=== PATIENT | male | born 1995 ===

== ENCOUNTER 2019-12-15 19:07 | Emergency (ER) | payer SELFPAY ==
[2019-12-15 19:21] VITALS: BP 143/100; PULSE 89; RESP 18; TEMP 37.2; O2SAT 97; BMI 28.1
[2019-12-15 19:28] LABS: Basophils # 0.1 10^3/uL (0.0-0.1); Basophils % 0.9 %; Eosinophils # 0.1 10^3/uL (0.0-0.8); Eosinophils % 1.1 %; Hemoglobin 15.8 g/dL (11.7-16.6); Lymphocytes % 27.3 %; Mean Corpuscular HGB Conc 34.3 g/dL (30.0-36.0); Mean Corpuscular Hemoglobin 30.7 pg (28.0-34.0); Mean Corpuscular Volume 89.5 fL (80-94); Monocytes # 0.8 10^3/uL (0.2-0.9); Monocytes % 11.1 %; Neutrophils # 4.43 10^3/uL (1.8-7.7); Neutrophils % 59.3 %; Nucleated Red Blood Cells % 0 %; Platelet Count 380 10^3/cmm (130-400); Red Blood Count 5.14 10^6/uL (4.1-5.3); Red Cell Distribution Width 11.9 % (12.1-15.1); White Blood Count 7.5 10^3/uL (4.0-10.0)
[2019-12-15 19:46] LABS: Alanine Aminotransferase 209 U/L (0-41); Albumin Level 5.1 g/dL (3.5-5.2); Alcohol Level 117 mg/dL (0-10); Alkaline Phosphatase 109 IU/L (40-130); Anion Gap 17.6 (5-19); Aspartate Amino Transferase 135 U/L (0-40); Blood Urea Nitrogen 4 mg/dL (6-20); Calcium 9.6 mg/dL (8.5-10.5); Carbon Dioxide 23 mmol/L (22-29); Chloride 101 mmol/L (98-107); Globulin 3.2 g/dL (1.3-4.6); Glomerular Filtration Rate 137.4 mL/min (90-130); Glucose 108 mg/dL (65-115); Osmolality Calculated 282 mOsm/kg (285-295); Potassium 3.6 mmol/L (3.5-5.1); Sodium 138 mmol/L (136-145); Total Bilirubin 0.4 mg/dL (0.15-1.2); Total Protein 8.3 g/dL (6.6-8.7)
[2019-12-15 19:48] LABS: Acetaminophen < 5.0 ug/mL (10-30); Salicylate < 0.3 mg/dL (3-10)
--- NOTE | 2019-12-15 19:56 | W.ED.PSYCH ---
HPI - Psych General: Chief Complaint: Psychiatric Symptoms Stated Complaint: mhe Time Seen by Provider: 12/15/19 19:15 Source: patient Mode of arrival: ambulatory Limitations: no limitations History of Present Illness: HPI Narrative: Pj is a nice 24-year-old male who comes in with complaints of wanting to stop drinking. He states that he also uses drugs at times and this makes him very paranoid but he has not used anything recently. He says he does not drink every day but he does use other drugs. Patient states he is very depressed and wants help. He adamantly denies any suicidal or homicidal ideation. Denies any current hallucinations. He just continues to say that he wants to get help. Patient is unaware if he has severe withdrawal symptoms as he is never tried to stop drinking after he has been drinking heavily but he can quit at times if he needs to. This time the patient appears alert and oriented there is no smell of alcohol presently. He does not appear impaired or intoxicated. He does admit to drinking today and shortly before arrival here. Review of Systems Const: Denies: fever(s), chills, body aches, fatigue, malaise or diaphoresis Eyes: Denies: change in vision, blurry vision, photophobia, eye discomfort, eye discharge or eye redness ENMT: Denies: throat pain, odynophagia, hoarseness, swelling of lips/tongue, ear or mastoid pain, ear discharge, change in hearing or nasal discharge Card: Denies: chest pain, palpitations, irregular heart rhythm, edema, lightheadedness, syncope, pre-syncope, dyspnea on exertion or orthopnea Resp: Denies: dyspnea, productive cough, non-productive cough, wheezing, hemoptysis or chest congestion GI: Denies: abdominal pain, nausea, vomiting, hematemesis, coffee ground emesis, heartburn, diarrhea, constipation, GI cramping, hematochezia or melena : Denies: flank pain, dysuria, urinary frequency, urinary urgency or hematuria Musc: Denies: neck pain, back pain, extremity pain, extremity swelling, joint pain, joint swelling, joint redness, joint warmth or joint stiffness Skin/Breast: Denies: rash, pruritus, erythema or skin tenderness Neuro: Denies: headache(s), numbness in extremities, weakness in extremities, sensory changes, lack of coordination, difficulty walking, dizziness, vertigo, confusion, Slurred speech present or seizure-like activity Sonny/Lymph: Denies: easy bruising, easy bleeding, petechiae, purpura or enlarged lymph nodes All/Imm: Denies: urticaria, throat swelling, tongue swelling, facial swelling or acute wheezing [facility] ED PFSH: Medical History (Updated 12/15/19 @ 20:39 by Tiny Walker) No pertinent past medical history Physical Exam Const: COMMON NORMALS: no acute distress, patient oriented x3, no limitations, healthy appearing and well nourished GENERAL APPEARANCE: cooperative, well kempt and well developed HENMT: COMMON NORMALS: normocephalic, atraumatic, external ears normal, EAC's normal and Normal external nose present HEAD & SCALP: normal to inspection, normocephalic and atraumatic FACE & SINUS: normal facial exam and face symmetric NOSE: Normal external nose present and Normal nares present EXTERNAL EAR: Yes external ears normal EXTERNAL AUDITORY CANAL: EAC's normal MOUTH: Normal oral and palatal mucosa present, lip normal and tongue normal Eye: COMMON NORMALS: Equal, round and reactive pupils present and conjunctivae normal GENERAL EYE: appearance normal, both eyes and all related structures ALIGNMENT: Yes alignment normal PERIORBITAL: periorbital findings normal EYELID: eyelids normal CONJUNCTIVA: Yes conjunctivae normal SCLERA: sclerae normal PUPIL: Yes Equal, round and reactive pupils present Neck/C-Spine: COMMON NORMALS: full ROM, no lymphadenopathy, supple, no meningeal signs and no JVD GENERAL: Yes normal visual inspection and Yes trachea midline Chest: COMMONS NORMALS: normal inspection of the chest and normal palpation of entire chest wall Resp: COMMON NORMALS: normal respiratory effort, No retractions, No use of accessory muscles and clear to auscultation bilaterally EFFORT & INSPECTION: Yes able to speak in complete sentences and Yes symmetric chest movement AUSCULTATION: clear to auscultation bilaterally, no crackles, no rales, no rhonchi and no wheezes Cardio: COMMON NORMALS: no JVD, regular rate, regular rhythm, S1 normal heart sound present and S2 normal heart sound present RATE: regular rate RHYTHM: regular rhythm HEART SOUNDS: S1 normal heart sound present, S2 normal heart sound present, no click, no gallops, no murmurs, no rubs and abnormal split S2 GI: COMMON NORMALS: Soft to palpation and No hepatosplenomegaly present PALPATION: Yes Soft to palpation, No Tenderness to palpation present (GI), No Guarding due to palpation present (GI), No Rigid due to palpation, Yes No hepatosplenomegaly present, No Hernia present, No Palpable mass present and No Pulsatile mass present : COMMON NORMALS: Yes no CVA tenderness BLADDER/KIDNEY EXAM: Yes no CVA tenderness Back/Pelvis: COMMON NORMALS: no CVA tenderness, thoracic and lumbar spine normal to inspection, no thoracic nor lumbar tenderness and thoraco-lumbar ROM normal Extremity: COMMON NORMALS: normal to inspection, full ROM, capillary refill normal, no joint enlargement, no clubbing, cyanosis or edema and no calf tenderness Neuro: COMMON NORMALS: patient oriented x3, CN's II-XII intact bilaterally, moves all extremities, no focal motor deficits and no sensory deficits noted MENINGEAL SIGNS: Yes no meningeal signs SPEECH: speech normal Psych: COMMON NORMALS: mental status grossly normal, Normal thought process present, cooperative, normal affect, speech normal and activity/motor behavior normal APPEARANCE: Yes well kempt SPEECH: Yes normal speech THOUGHT PROCESS: Normal thought process present Skin: COMMON NORMALS: no rashes or lesions noted, turgor normal, no jaundice, no petechiae and no mottling GENERAL SKIN EXAM: no rashes or lesions noted and turgor normal MDM - Psych MDM Narrative: Medical decision making narrative: 2036 -patient is change his mind and now wants to be discharged. He agrees to let his dad come pick him up because of his mild intoxication by laboratory value. Clinically the patient is alert, oriented and answers all questions appropriately and shows no sign of impairment. Patient clearly has the capacity to make these decisions. She has no sign of acute psychosis or impairment. He is not suicidal or homicidal. Going to discharge him per his wishes and he understands he is welcome to return if he changes his mind. Patient was able to walk with a nice any of ataxia he did understand he is welcome to return if he changes his mind. Lab Data: Attestation: I reviewed the patient's lab results. Labs: Lab Results 12/15/19 12/15/19 Range/Units 19:22 19:22 WBC 7.5 (4.0-10.0) 10^3/ uL RBC 5.14 (4.1-5.3) 10^6/u L Hgb 15.8 (11.7-16.6) g/dL Hct 46.0 (42.0-52.0) % MCV 89.5 (80-94) fL MCH 30.7 (28.0-34.0) pg MCHC 34.3 (30.0-36.0) g/dL RDW 11.9 L (12.1-15.1) % Plt Count 380 (130-400) 10^3/c mm MPV 10.0 (7.4-10.4) fL Neut % (Auto) 59.3 % Lymph % (Auto) 27.3 % Bradford % (Auto) 11.1 % Eos % (Auto) 1.1 % Baso % (Auto) 0.9 % Neut # (Auto) 4.43 (1.8-7.7) 10^3/u L Lymph # (Auto) 2.0 (0.8-4.8) 10^3/u L Bradford # (Auto) 0.8 (0.2-0.9) 10^3/u L Eos # (Auto) 0.1 (0.0-0.8) 10^3/u L Baso # (Auto) 0.1 (0.0-0.1) 10^3/u L Nucleated RBC % (a uto) 0 % Nucleated RBCs # 0.0 /100WBC Sodium 138 (136-145) mmol/L Potassium 3.6 (3.5-5.1) mmol/L Chloride 101 (98-107) mmol/L Carbon Dioxide 23 (22-29) mmol/L Anion Gap 17.6 (5-19) BUN 4 L (6-20) mg/dL Creatinine 0.7 (0.7-1.2) mg/dL GFR Calculation 137.4 H (90-130) mL/min Glucose 108 (65-115) mg/dL Calculated Osmolal ity 282 L (285-295) mOsm/k g Calcium 9.6 (8.5-10.5) mg/dL Total Bilirubin 0.4 (0.15-1.2) mg/dL AST 135 H (0-40) U/L ALT 209 H (0-41) U/L Alkaline Phosphata se 109 (40-130) IU/L Total Protein 8.3 (6.6-8.7) g/dL Albumin 5.1 (3.5-5.2) g/dL Globulin 3.2 (1.3-4.6) g/dL Salicylates < 0.3 L (3-10) mg/dL Acetaminophen < 5.0 L (10-30) ug/mL Ethyl Alcohol 117 H (0-10) mg/dL Discharge Plan Discharge Patient Disposition: Home Clinical Impression: Alcohol intoxication Qualifiers: Complication of substance-induced condition: uncomplicated Qualified Code(s): F10.920 - Alcohol use, unspecified with intoxication, uncomplicated Condition: Stable Prescriptions: No Action Tums 300 mg (750 mg) Tablet,Chewable 300 mg PO QID PRN (Reason: ACID STOMACH) RF: 0 No Known Home Medications RF: 0 Discharge Orders: Discharge Order (Routine); Ordered 12/15/19 Ordered By: Tiny Wakler Referrals: Oh Manzo MD [Primary Care Provider] - 1-3 days Discharge Diet: Advance as tolerated Discharge Activity: Increase activity as tolerated Patient Instructions: Alcohol Intoxication (ED), Abuse of Alcohol (ED) Activity Restrictions/Additional Instructions: Please return to the ER immediately for any of the signs or symptoms listed on your discharge instruction sheets, worsening/changing of your symptoms, you are not getting better as quickly as expected, or for ANY other cause or concerns. You have been offered further evaluation and care here including admission to help with detox from alcohol but have declined. If your symptoms change or worsen in any way you are more than welcome to return to the ER at any time for further evaluation and care. Discharge Date/Time: 12/15/19 20:45 Coding Level of Care Code ED Roving Hand for Lesvia Fwd Exam Comprehensive
--- NOTE | 2019-12-15 20:38 | PC.NURSE ---
Pt is upset. I'm not getting treatment just setting here . Ativan and nicotine patch offered. Pt wanting to go outside and smoke, pt advised of [facility] policy. Pt wanting to de discharged.
== END 2019-12-15 20:45 | disposition home or self-care (01) ==
PROVIDERS: Emergency Medicine; Emergency Provider Emergency Medicine; PCP Family Medicine
DX: F10.920 Alcohol use, unspecified with intoxication, uncomplicated (principal); Y90.5 Blood alcohol level of 100-119 mg/100 ml
CPT/HCPCS: 12345; 36415; 80053; 80307; 85025; 99281; 99282

== ENCOUNTER 2020-05-11 17:53 | Inpatient (IN) | payer SELFPAY ==
[2020-05-11 17:56] VITALS: BP 160/100; PULSE 98; RESP 18; O2SAT 99; BMI 28.1
[2020-05-11] MEDS: LORazepam 2 mg/mL INJ 1 mL IM (18:26)
[2020-05-11] MEDS: ziprasidone 20 mg/mL SDV IM (18:27)
[2020-05-11 19:11] LABS: Basophils % 0.6 %; Eosinophils # 0.1 10^3/uL (0.0-0.8); Eosinophils % 0.8 %; Hemoglobin 16.5 g/dL (11.7-16.6); Lymphocytes # 3.3 10^3/uL (0.8-4.8); Lymphocytes % 45.3 %; Mean Corpuscular Hemoglobin 28.8 pg (28.0-34.0); Mean Corpuscular Volume 87.4 fL (80-94); Mean Platelet Volume 9.6 fL (7.4-10.4); Monocytes # 0.6 10^3/uL (0.2-0.9); Monocytes % 8.1 %; Neutrophils % 44.6 %; Nucleated Red Blood Cells % 0 %; Platelet Count 422 10^3/cmm (130-400); Red Blood Count 5.72 10^6/uL (4.1-5.3); Red Cell Distribution Width 13.1 % (12.1-15.1); White Blood Count 7.2 10^3/uL (4.0-10.0)
--- NOTE | 2020-05-11 19:43 | PC.NURSE ---
Pt resting quietly in bed at this time, respirations appear even and unlabored. 1:1 sitter at bedside.
[2020-05-11 20:06] LABS: Alanine Aminotransferase 25 U/L (0-41); Albumin Level 4.4 g/dL (3.5-5.2); Alkaline Phosphatase 146 IU/L (40-130); Anion Gap 13.7 (5-19); Aspartate Amino Transferase 28 U/L (0-40); Blood Urea Nitrogen 9 mg/dL (6-20); Calcium 8.7 mg/dL (8.5-10.5); Carbon Dioxide 30 mmol/L (22-29); Chloride 108 mmol/L (98-107); Globulin 3.2 g/dL (1.3-4.6); Glomerular Filtration Rate 137.4 mL/min (90-130); Glucose 114 mg/dL (65-115); Osmolality Calculated 306 mOsm/kg (285-295); Potassium 3.7 mmol/L (3.5-5.1); Sodium 148 mmol/L (136-145); Total Bilirubin 0.2 mg/dL (0.15-1.2); Total Protein 7.6 g/dL (6.6-8.7)
[2020-05-11 20:15] LABS: Acetaminophen < 5.0 ug/mL (10-30); Salicylate < 0.3 mg/dL (3-10)
[2020-05-11 20:16] LABS: Alcohol Level 367 mg/dL (0-10)
[2020-05-11 22:34] LABS: Alcohol Level 271 mg/dL (0-10)
--- NOTE | 2020-05-11 23:16 | W.ED.PSYCH ---
HPI - Psych General: Chief Complaint: Psychiatric Symptoms Stated Complaint: Combative/ETOH Time Seen by Provider: 05/11/20 18:00 Source: patient and police Mode of arrival: other (law enforcement) History of Present Illness: HPI Narrative: This is a 24-year-old gentleman who was brought in by law enforcement. Apparently his mother had called law enforcement because she said her son was having homicidal ideations over a lady. The patient is also obviously intoxicated. The patient was apparently aggressive with the police officers and was punching at the glass of their car and may have swung at the officers. He was then placed in handcuffs and brought here for evaluation. complaint: other (homicidal ideation) Exacerbating factors: alcohol Context: recent alcohol abuse Associated psychiatric symptoms: homicidal ideation Associated symptoms: Reports homicidal ideation Review of Systems General: Reports: 10 or more systems reviewed and unremarkable except in HPI and below Const: Denies: fever(s), chills or body aches Eyes: Denies: change in vision or blurry vision ENMT: Denies: throat pain, enlarged tonsils, odynophagia, hoarseness, mouth pain or swelling of lips/tongue Card: Denies: palpitations, irregular heart rhythm, edema or swelling of feet/ankles Resp: Denies: dyspnea, productive cough or non-productive cough GI: Denies: abdominal pain, nausea or vomiting : Denies: flank pain, dysuria, urinary frequency, urinary urgency or urinary hesitancy Musc: Denies: neck pain, back pain or extremity swelling Skin/Breast: Denies: rash, pruritus or erythema Neuro: Denies: headache(s), numbness in extremities or weakness in extremities Psych: Reports: homicidal ideation Endo: Denies: polyuria, polydipsia or tired all the time PFS ED PFSH: Medical History No pertinent past medical history Physical Exam Const: COMMON NORMALS: no acute distress, average body habitus, patient oriented x3, no limitations, healthy appearing, alert and well nourished Eye: COMMON NORMALS: Equal, round and reactive pupils present, EOMs intact bilaterally, conjunctivae normal and no scleral icterus CONJUNCTIVA: Yes conjunctivae normal PUPIL: Yes Equal, round and reactive pupils present Neck/C-Spine: COMMON NORMALS: no meningeal signs and no JVD Resp: COMMON NORMALS: normal respiratory effort, No retractions, No use of accessory muscles, clear to auscultation bilaterally and percussion normal AUSCULTATION: clear to auscultation bilaterally PERCUSSION: percussion normal Cardio: COMMON NORMALS: no JVD, regular rate, regular rhythm, S1 normal heart sound present, S2 normal heart sound present, No gallops present (Cardio), No clicks present (Cardio), No murmurs present (Cardio), No rub (Cardio) and Peripheral pulses 2+ throughout RATE: regular rate RHYTHM: regular rhythm HEART SOUNDS: S1 normal heart sound present and S2 normal heart sound present PERIPHERAL PULSES: Peripheral pulses 2+ throughout GI: COMMON NORMALS: Normal to inspection, nondistended, normoactive bowel sounds present, Soft to palpation, non-tender, No hepatosplenomegaly present, no masses and no bruits PALPATION: Yes Soft to palpation and Yes No hepatosplenomegaly present Extremity: COMMON NORMALS: normal to inspection, full ROM, capillary refill normal, no calf tenderness and no pedal edema Neuro: COMMON NORMALS: patient oriented x3 SENSORIUM/ORIENTATION: Yes alert MENINGEAL SIGNS: Yes no meningeal signs Skin: COMMON NORMALS: no rashes or lesions noted, no wounds, turgor normal, no jaundice, no petechiae and no mottling GENERAL SKIN EXAM: no rashes or lesions noted and turgor normal MDM - Psych MDM Narrative: Medical decision making narrative: This 24-year-old gentleman with alcohol intoxication had apparently threatened somebody earlier today and his mother was concerned enough to call law enforcement. The patient was violent and aggressive towards police officers and also was arrested and placed in handcuffs and brought here for evaluation. The police filled out the affidavits stating what happened when he was in their custody. The patient was initially cooperative in the emergency department but when he was asked to have his clothes taken off he became aggressive, threatening to attack and punched security officers and became more cooperative. At that point he was physically and chemically restrained. After he was chemically restrained physical restraints were taken off. He was medically cleared and admitted to the neuropsychiatric unit for further evaluation and management. Medical Records: Attestation: I reviewed the patient's medical records. Lab Data: Attestation: I reviewed the patient's lab results. Labs: Lab Results 05/11/20 05/11/20 05/11/20 Range/Units 18:58 18:58 22:10 WBC 7.2 (4.0-10.0) 10^3/ uL RBC 5.72 H (4.1-5.3) 10^6/u L Hgb 16.5 (11.7-16.6) g/dL Hct 50.0 (42.0-52.0) % MCV 87.4 (80-94) fL MCH 28.8 (28.0-34.0) pg MCHC 33.0 (30.0-36.0) g/dL RDW 13.1 (12.1-15.1) % Plt Count 422 H (130-400) 10^3/c mm MPV 9.6 (7.4-10.4) fL Neut % (Auto) 44.6 % Lymph % (Auto) 45.3 % Bradley % (Auto) 8.1 % Eos % (Auto) 0.8 % Baso % (Auto) 0.6 % Neut # (Auto) 3.20 (1.8-7.7) 10^3/u L Lymph # (Auto) 3.3 (0.8-4.8) 10^3/u L Bradley # (Auto) 0.6 (0.2-0.9) 10^3/u L Eos # (Auto) 0.1 (0.0-0.8) 10^3/u L Baso # (Auto) 0.0 (0.0-0.1) 10^3/u L Nucleated RBC % (a uto) 0 % Nucleated RBCs # 0.0 /100WBC Sodium 148 H (136-145) mmol/L Potassium 3.7 (3.5-5.1) mmol/L Chloride 108 H (98-107) mmol/L Carbon Dioxide 30 H (22-29) mmol/L Anion Gap 13.7 (5-19) BUN 9 (6-20) mg/dL Creatinine 0.7 (0.7-1.2) mg/dL GFR Calculation 137.4 H (90-130) mL/min Glucose 114 (65-115) mg/dL Calculated Osmolal ity 306 H (285-295) mOsm/k g Calcium 8.7 (8.5-10.5) mg/dL Total Bilirubin 0.2 (0.15-1.2) mg/dL AST 28 (0-40) U/L ALT 25 (0-41) U/L Alkaline Phosphata se 146 H (40-130) IU/L Total Protein 7.6 (6.6-8.7) g/dL Albumin 4.4 (3.5-5.2) g/dL Globulin 3.2 (1.3-4.6) g/dL Salicylates < 0.3 L (3-10) mg/dL Acetaminophen < 5.0 L (10-30) ug/mL Ethyl Alcohol 367 H* 271 H (0-10) mg/dL Discharge Plan Discharge Patient Disposition: Admitted As Inpatient Admit Provider: William Heller Clinical Impression: Homicidal ideation, Alcohol intoxication delirium Condition: Stable Coding Level of Care Code ED Mental Health Program Specialist for Lesvia Herrera
[2020-05-11 23:26] VITALS: BP 105/65; PULSE 108; RESP 16; O2SAT 94
[2020-05-12 00:12] VITALS: BP 112/58; PULSE 120; RESP 15; TEMP 36.6; O2SAT 97
[2020-05-12 00:18] LABS: Amphetamines Screen Urine Negative (Negative); Barbiturates Screen Urine Negative (Negative); Benzodiazepines Screen Urine Positive (Negative); Cocaine Screen Urine Negative (Negative); Opiate Screen Urine Negative (Negative); PCP Screen Urine Negative (Negative); THC Screen Urine Negative (Negative)
[2020-05-12 00:30] LABS: Add Urine Microscopic? YES; Bilirubin Urine Neg (Negative); Blood Urine Neg (Negative); Glucose Urine UA Norm (Normal); Ketones Urine Negative (Negative); Leukocyte Esterase Urine Negative (Negative); Nitrate Urine Negative (Negative); Protein Urine Trace (Negative); Urine Appearance Clear (CLEAR); Urine Color Yellow (Yellow); Urobilinogen Urine Norm (Negative); pH Urine 5 (5-7)
[2020-05-12 00:32] LABS: Add Urine Culture? No; Calcium Oxalate Crystals Urine 0-4 /hpf; Mucus Urine TRACE /hpf; RBC Urine RARE /hpf (0-2); Squamous Epithelial Cell Urine RARE /hpf (0-5); WBC Urine RARE /hpf (0-5)
--- NOTE | 2020-05-12 03:35 | PC.NURSE ---
PM admission 24/Male mother called the police to report her sons behavior, Pt intoxicated and making HI statements regarding female. Pt became angry/aggressive with the police and was punching at the glass of their car and threw a punch at one of the officers.He was then placed in handcuffs and brought here for evaluation. Upon arrival, pt was combative-physically/verbally aggressive with ED staff, Balwinder Sims. Pt was given 20mg Geodon IM and Ativan 2mg IM. Placed in green scrubs and brought to the unit. Pt is sleepy from medication and brought to the NPU on a stretcher. Pt states, I have been drinking since I turn 20 almost daily. Each night I drink a 1/5 of Fireball. Pt states, Im an alcoholic. I can buy the stuff legally now so why wouldn't I. Pt states, I was walking with my uncle when the tripe scraper just rolled up on me.I don't know why they were even there. Pt states, I tend to get violent when I drink and I think I need rehab but I do not want to go inpatient. Pt is calm and cooperative with NPU staff. Placed on CIWA protocol. V/S obtained T 97.8 IA 120, RR 19, BP 112/58. Heart/Lung sounds are normal. Will continue to monitor pt
--- NOTE | 2020-05-12 04:11 | PC.NURSE ---
[place] 2 Pt sedated upon arrival to NPU. Received meds in ED prior to admit. Pt indicated he is a daily drinker and will have s/s of withdrawl.
[2020-05-12 06:00] VITALS: BP 141/88; PULSE 76; RESP 18; TEMP 36.2; O2SAT 94
[2020-05-12] MEDS: multivitamin therapeutic Tablet 1 TAB PO (08:41)
[2020-05-12] MEDS: thiamine 100 mg Tablet PO (08:41)
[2020-05-12] MEDS: folic acid 1 mg Tablet PO (08:41)
[2020-05-12 14:00] VITALS: BP 148/96; PULSE 86; RESP 18; TEMP 36.2; O2SAT 95
--- NOTE | 2020-05-12 18:49 | PM.NHP ---
Providers/Chief Complaint Admitting Physician: William Heller MD Primary Care Provider: Oh Manzo MD Chief Complaint: HI/ SI HPI NPU History of Present Illness Pj Dudley JR is a 24 year old male who presented to the emergency department with the following report: Chief Complaint: Psychiatric Symptoms Stated Complaint: Combative/ETOH Time Seen by Provider: 05/11/20 18:00 Source: patient and police Mode of arrival: other (law enforcement) History of Present Illness: HPI Narrative: This is a 24-year-old gentleman who was brought in by law enforcement. Apparently his mother had called law enforcement because she said her son was having homicidal ideations over a lady. The patient is also obviously intoxicated. The patient was apparently aggressive with the police officers and was punching at the glass of their car and may have swung at the officers. He was then placed in handcuffs and brought here for evaluation. MD complaint: other (homicidal ideation) Exacerbating factors: alcohol Context: recent alcohol abuse Associated psychiatric symptoms: homicidal ideation Associated symptoms: Reports homicidal ideation. He was admitted to the neuropsychiatric unit on a 96-hour hold for definitive treatment of those issues. Luis Enrique presented to the unit reporting that this is for psychiatric consultation. He reports he did have some treatment as a child but he was just rebellious and [id number] to the degree. He reports that he does not smoke cigarettes that he drinks alcohol and acknowledges that can be a problem and had not drank for 3 months but has been drinking again, he denies smoking marijuana or using any other illicit drugs. He reports that he has been to rehab 2 times as an adolescent and 1 time for 3 months as an adult. He had 1 DUI. He reports that life is good but that recently he started drinking a lot and he knows that it is a problem but he just got out of control yesterday. He has no collection reports no memory of what happened. He denies any problems or triggers to that level of intoxication. He denies any suicide attempts in his life. Psychiatric history: As above Substance abuse history: As above. Family history: He endorses mental health issues on both sides of family as well as addiction issues on both sides of family but he denies any suicide attempts or completions. Developmental history: There were no problems with the , or delivery, learned to walk and talk and met developmental milestones on time, and denies need for speech therapy, learning support, emotional support or special education classes. Psychosocial: He reports that his mother and father were together when he was born and that he is the oldest and he has a younger brother and sister that share the same to parents. His mother never had any other children but his dad has 3-4. He reports his childhood was okay and he denies any emotional, physical or sexual abuse. He reports he did not graduate from high school but dropped out in the 12th grade but he did get his GED. He reports that he is a heterosexual with his longest relationship being about a year. He is never , has never had biological children, and recently . He reports his longest work history is about a year. He reports that he stays with a friend in a house. Legal history: He reports that he has been in [facility] probably 10 times but the longest time in [facility] is about 2 weeks. Medical history: Denied. Meds NPU Home Medications Medication Instructions Recorded Confirmed Last Taken Type calcium carbonate [Tums] 300 mg PO QID PRN 12/15/19 05/11/20 12/15/19 History Allergies Allergy/AdvReac Type Severity Reaction Status Date / Time No Known Allergies Allergy Unverified 12/15/19 19:51 PFSH NPU PFSH: Medical History (Reviewed 05/11/20 @ 23:19 by Harry De La Torre MD, [facility] [place]) No pertinent past medical history Mental Status Exam MSE Comments: This is a overweight male with hospital scrubs on. With appropriate dress, grooming and eye contact. No abnormal for mild psychomotor retardation. Cooperative with exam in no acute distress. Speech was normal rate and volume. Mood described as much better/good process organized. Thought content: Patient denied suicidal or homicidal ideation, there were no days reported or noted, he denied any auditory or visual hallucinations. Attention and concentration were intact and memory was mostly reliable but none were formally tested. He is alert and oriented x3. Insight and judgment are fair, impulse control is limited. Vitals/I&O/Wt Last Vital Signs Temp 97.7 F 05/12/20 22:00 Pulse 72 05/12/20 22:00 Resp 17 05/12/20 22:00 BP 158/89 05/12/20 22:00 Pulse Ox 96 05/12/20 22:00 Weight last 48 hrs Weight 81.647 kg Data NPU : 05/11/20 18:58 05/11/20 18:58 A&P Assessment and plan (1) Homicidal ideation: Status: Acute (2) Alcohol intoxication delirium: Status: Acute (3) Alcohol withdrawal syndrome without complication: Status: Acute Additional A&P Information This is a 24-year-old male who presented to the emergency department intoxicated after a conflict with police officers denying any current symptoms or problems with some contradictory information from his mother denying any interest in ongoing treatment or medication. 1. Continue current medication. Discussed medication for help with craving. 2. Continue every 15 minute checks for safety. 3. Encourage individual, group and milieu therapies. 4. Encourage sober living treatment after discharge at the highest level of care to which she is willing to commit. Involuntary Hold Information 96 Hour Hold: 96 Hour Involuntary Admission: Yes 96 Hour Hold Ending Date: 05/17/20 96 Hour Hold Ending Time: 18:15 Attestations NPU Medical Necessity Statement*: Inpatient hospitalization is medically necessary and the clinically appropriate intervention at this time. We will monitor medications and make changes as indicated. Patient will be in the hospital for over two midnights. Likely length of stay 2-4 days. Coding Level of Care Code Acute Cement Breaker for Lesvia Herrera Diagnoses Homicidal ideation R45.850 Alcohol intoxication delirium F10.121 Alcohol withdrawal syndrome without complication F10.230
[2020-05-12] MEDS: hyDROXYzine 25 mg Capsule 50 MG PO (21:54)
[2020-05-12] MEDS: trazodone 50 mg Tablet PO (21:54)
[2020-05-12 22:00] VITALS: BP 158/89; PULSE 72; RESP 17; TEMP 36.5; O2SAT 96
--- NOTE | 2020-05-13 05:31 | PC.NURSE ---
PM Assessment Pt is 24/m who came to unit yesterday evening. Pt BAL was 367 and he was positive for Benzo's with a report of HI. Pt denies HI/SI today, contracted for safety. Pt states, I want to do a rehab program but I do not want to go in patient. Pt is unsure of where he will live when he leaves [facility] due to the nature of his behavior that resulted in this placement. Pt states, I have no idea what happened before I came in. I just remember business education instructor, the doctors, and being here when I woke up. Pt states, he has been a chronic drinker since age 20, stopped for 2 months while dating the girl who he was angry about and making homicidal statement's toward her new love interest. Pt feels ashamed of his drinking but still believes he can handle it his way. Pt CIWA is 0 for the shift.Pt has not exhibited any s/s of withdrawl, pt watched tv, asked for medication to help him sleep, and went to bed early.
[2020-05-13 06:00] VITALS: BP 120/68; PULSE 53; RESP 17; TEMP 36.8; O2SAT 96
[2020-05-13] MEDS: thiamine 100 mg Tablet PO (08:31)
[2020-05-13] MEDS: folic acid 1 mg Tablet PO (08:31)
[2020-05-13] MEDS: multivitamin therapeutic Tablet 1 TAB PO (08:31)
[2020-05-13 13:43] VITALS: BP 119/78; PULSE 90; RESP 18; TEMP 36.8
--- NOTE | 2020-05-13 17:34 | P.DS_ITS ---
Diagnoses at Discharge Discharge Diagnosis (1) Homicidal ideation: Status: Resolved (2) Alcohol intoxication delirium: Status: Resolved (3) Alcohol withdrawal syndrome without complication: Status: Acute (4) Alcohol use: Status: Acute (5) Depression: Status: Acute Reason for Visit Reason for Visit: HI/ SI Brief History: History of Present Illness Pj Dudley JR is a 24 year old male who presented to the emergency depa rtment with the following report: Chief Complaint: Psychiatric Symptoms Stated Complaint: Combative/ETOH Time Seen by Provider: 05/11/20 18:00 Source: patient and police Mode of arrival: other (law enforcement) History of Present Illness: HPI Narrative: This is a 24-year-old gentleman who was brought in by law enforcement. Apparently his mother had called law enforcement because she said her son was having homicidal ideations over a lady. The patient is also obviously intoxicated. The patient was apparently aggressive with the police officers and was punching at the glass of their car and may have swung at the officers. He was then placed in handcuffs and brought here for evaluation. MD complaint: other (homicidal ideation) Exacerbating factors: alcohol Context: recent alcohol abuse Associated psychiatric symptoms: homicidal ideation Associated symptoms: Reports homicidal ideation. He was admitted to the neuropsychiatric unit on a 96-hour hold for definitive treatment of those issues. Luis Enrique presented to the unit reporting that this is for psychiatric consultation. He reports he did have some treatment as a child but he was just rebellious and [id number] to the degree. He reports that he does not smoke cigarettes that he drinks alcohol and acknowledges that can be a problem and had not drank for 3 months but has been drinking again, he denies smoking marijuana or using any other illicit drugs. He reports that he has been to rehab 2 times as an adolescent and 1 time for 3 months as an adult. He had 1 DUI. He reports that life is good but that recently he started drinking a lot and he knows that it is a problem but he just got out of control yesterday. He has no collection reports no memory of what happened. He denies any problems or triggers to that level of intoxication. He denies any suicide attempts in his life. Psychiatric history: As above Substance abuse history: As above. Family history: He endorses mental health issues on both sides of family as well as addiction issues on both sides of family but he denies any suicide attempts or completions. Developmental history: There were no problems with the , or delivery, learned to walk and talk and met developmental milestones on time, and denies need for speech therapy, learning support, emotional support or special education classes. Psychosocial: He reports that his mother and father were together when he was born and that he is the oldest and he has a younger brother and sister that share the same to parents. His mother never had any other children but his dad has 3-4. He reports his childhood was okay and he denies any emotional, physical or sexual abuse. He reports he did not graduate from high school but dropped out in the 12th grade but he did get his GED. He reports that he is a heterosexual with his longest relationship being about a year. He is never , has never had biological children, and recently . He reports his longest work history is about a year. He reports that he stays with a friend in a house. Legal history: He reports that he has been in longterm probably 10 times but the longest time in longterm is about 2 weeks. Medical history: Denied. Hospital Course Hospital Course Luis Enrique presented to the emergency department on a 96-hour hold with reports by family of him drinking too much and more than their custom as well as worries that he is struggling with mental health issues. He was admitted to the neuropsychiatric unit for definitive treatment of those issues. On the unit he slowly acclimated to the individual, milieu therapy provided he did acknowledge that his drinking had gotten out of control and endorsed embarrassment to that and however he denied any mental health issues that needed inpatient interventions. He did not deny the existence of depression but reported that he knew he needed to stop drinking and get his life in order and is depression but improved. He was monitored on the 96-hour hold for a couple of days and was ultimately able to contract for safety and was absent credible lethality. D uring the hospitalization, patient had routine laboratory studies which were within normal limits except for few outliers. Additionally there was a general medical evaluation which was also within normal limits and revealed no new acute processes. Discharge Summary: At the time of discharge, he was absent psychosis or lethality. Mood and anxiety were well managed. Patient endorsed a plan to avoid all drugs of abuse and follow-up with the aftercare recommendations of the treatment team excepting the referrals but seeming ambivalent about engagement. Patient was evaluated and deemed to be absent credible lethality, and had achieved the maximum benefit from an inpatient hospitalization, so was discharged. Involuntary Hold Information 96 Hour Hold: 96 Hour Involuntary Admission: Yes 96 Hour Hold Ending Date: 05/17/20 96 Hour Hold Ending Time: 18:15 Mental Status Exam MSE Comments: This is a overweight male with hospital scrubs on. With appropriate dress, grooming and eye contact. No abnormal for mild psychomotor retardation. Cooperative with exam in no acute distress. Speech was normal rate and volume. Mood described as much better/good process organized. Thought content: Patient denied suicidal or homicidal ideation, there were no days reported or noted, he denied any auditory or visual hallucinations. Attention and concentration were intact and memory was mostly reliable but none were formally tested. He is alert and oriented x3. Insight and judgment are fair, impulse control is limited. Discharge Data Vitals: Last Vital Signs Temp 98.3 F 05/13/20 13:43 Pulse 90 05/13/20 13:43 Resp 18 05/13/20 13:43 BP 119/78 05/13/20 13:43 Pulse Ox 96 05/13/20 06:00 Discharge Plan Discharge Patient Disposition: Home Condition: Stable Prescriptions: New Vitamin B-1 (mononitrate) 100 mg Tablet 100 mg PO DAILY 30 Days Qty: 30 RF: 1 Continued calcium carbonate [Tums] 300 mg (750 mg) Tablet,Chewable 300 mg PO QID PRN (Reason: ACID STOMACH) RF: 0 Discharge Orders: Discharge Order (Routine); Ordered 05/13/20 Ordered By: William Heller Referrals: [facility] [Outside] (Follow up for outpatient mental health services) [facility] [Outside] (resource for inpatient or outpatient substance abuse treatment) Discharge Diet: Regular Discharge Activity: Resume usual activity Patient Instructions: Thiamine (Vitamin B-1) (By mouth) Discharge Attestations [facility] Time Spent in Discharge Care*: less than 30 min Specific Discharge Activities: Specific discharge activities: educating patient, discussing with therapeutic case manager/social workers/dc planners, documenting/other paperwork and evaluating patient/reviewing data Coding Level of Care Code Acute Assistant Chief Engineer for [facility] Fwd Diagnoses Homicidal ideation R45.850 Alcohol intoxication delirium F10.121 Alcohol withdrawal syndrome without complication F10.230 Alcohol use Z72.89 Depression F32.9
[2020-05-13 17:43] VITALS: BP 119/78; PULSE 90; RESP 18; TEMP 36.8
--- NOTE | 2020-07-27 10:18 | PC.NURSE ---
05/11/20 184: Pt was removed from restraints at 1845 d/t pt being cooperative with care. Pt was placed in psychiatric scrubs and placed in regular bed and put on VS monitoring. No other needs at this time.
== END 2020-05-13 18:34 | disposition home or self-care (01) | DRG 897 ==
LOC: ER 18:41 → NP 22:54
PROVIDERS: Admitting Provider Psychiatry & Neurology Psychiatry; Emergency Provider Family Medicine; PCP Family Medicine; Visit Provider Psychiatry & Neurology Psychiatry
DX: F10.221 Alcohol dependence with intoxication delirium (principal); F10.239 Alcohol dependence with withdrawal, unspecified; F32.9 Major depressive disorder, single episode, unspecified; R45.850 Homicidal ideations; Y90.8 Blood alcohol level of 240 mg/100 ml or more
CPT/HCPCS: 12345; 36415; 80053; 80306; 80307; 81001; 81003; 85025; 96372; 99285; J2060; J3486

== ENCOUNTER 2021-06-18 21:55 | Inpatient (IN) | payer SELFPAY ==
[2021-06-18 22:30] VITALS: BP 152/96; PULSE 116; RESP 18; TEMP 36.2; O2SAT 96; BMI 29.0
--- NOTE | 2021-06-19 00:06 | W.ED.ALCOHOL ---
HPI - Alcohol General: Chief Complaint: Alcohol Stated Complaint: Detox Time Seen by Provider: 06/19/21 00:02 History of Present Illness: Mr. Dudley is a 25-year-old gentleman with significant past medical history of depression and polysubstance abuse. He endorses being sober for some period of time and had success with outpatient therapy programs however approximately 1 week ago used methamphetamine. He had approximately 1 week where he did not sleep and was having auditory and visual hallucinations. These caused him to be fearful for his life and at 1 point he asked one of his friends if he had a gun as the patient believed that he was going to be kidnapped and tortured and was considering ending his own life. This has slowly improved though the patient used methamphetamine again today. He does endorse alcohol use and attempt to stop the hallucinations. Outside of the context of drug use he does deny history of psychiatric symptoms. He otherwise denies medical complaints. Intensity symptoms moderate to severe. Course is improved. No other specific changes in health, exacerbating, or alleviating factors identified. He denies history of alcohol withdrawal seizures or DTs. Review of Systems General: Reports: 10 or more systems reviewed and unremarkable except in HPI and below PFSH ED PFSH: Medical History No pertinent past medical history Social History Smoking and tobacco status: former smoker Physical Exam Const: COMMON NORMALS: alert GENERAL APPEARANCE: cooperative and well developed HENMT: COMMON NORMALS: normocephalic and atraumatic HEAD & SCALP: normocephalic and atraumatic Eye: COMMON NORMALS: conjunctivae normal CONJUNCTIVA: Yes conjunctivae normal SCLERA: sclerae normal Neck/C-Spine: COMMON NORMALS: supple GENERAL: Yes trachea midline Resp: COMMON NORMALS: normal respiratory effort and clear to auscultation bilaterally EFFORT & INSPECTION: Yes able to speak in complete sentences AUSCULTATION: clear to auscultation bilaterally Cardio: COMMON NORMALS: regular rhythm RATE: tachycardic RHYTHM: regular rhythm GI: COMMON NORMALS: Soft to palpation PALPATION: Yes Soft to palpation and No Tenderness to palpation present (GI) PERCUSSION: normal to percussion Extremity: GENERAL: Yes normal exam except as noted and No edema Neuro: COMMON NORMALS: moves all extremities SENSORIUM/ORIENTATION: Yes alert and No Orientation impaired Psych: MOOD & AFFECT: Yes anxious Course ED course: - Patient was seen and evaluated by me at bedside -Vital signs obtained - Initial evaluation notable for exam as above -Anxiolysis, fluids, antiemetic ordered - Labs notable for mild hemoconcentration. Metabolic panel findings consistent with dehydration. Drug screen as tested positive for amphetamines and marijuana. - Patient discussed with psychiatry service community service organization director. Patient admitted for hallucinations and suicidal ideation to the Neuropsych Unit. - Based on ED evaluation at this point there is no obvious condition that would preclude the patient from inpatient management of psychiatric concerns. Note: Click bubbles or prepopulated lozano in note writing are used for assistance with data collection and billing and are inherently more limited than narrative and other text portions of this note. Please use narrative for additional clinical history and defer to narrative/free test for any case of contradictory information. If information appears in only free text or click bubble it should be considered present or absent as reported. Please contact note typewriter assembler for clarifications of clinical information or contradictory information. MDM is a brief summary, contradictory or erroneous seeming information should be clarified and full note should be reviewed. Vital Signs: Vital signs: Vital Signs Temperature 98 F 06/21/21 10:47 Pulse Rate 77 06/21/21 10:47 Respiratory Rate 19 H 06/21/21 10:47 Blood Pressure 141/85 06/21/21 10:47 Pulse Oximetry 95 06/21/21 10:47 MDM - Alcohol Medical Decision Making 25-year-old gentleman presenting with psychiatric concerns including hallucinations suicidal ideation though this had improved somewhat in the context of amphetamine abuse. Admitted to neuropsych for further management and treatment. Medical Records I reviewed the patient's medical records. Lab Data I reviewed the patient's lab results. : 06/19/21 00:12 06/19/21 00:12 Laboratory Results WBC 10.6 10^3/uL (4.0-10.0) H 06/19/21 00:12 RBC 5.65 10^6/uL (4.1-5.3) H 06/19/21 00:12 Hgb 16.5 g/dL (11.7-16.6) 06/19/21 00:12 Hct 48.5 % (42.0-52.0) 06/19/21 00:12 MCV 85.8 fl (80-94) 06/19/21 00:12 MCH 29.2 pg (28.0-34.0) 06/19/21 00:12 MCHC 34.0 g/dL (30.0-36.0) 06/19/21 00:12 RDW 14.0 % (12.1-15.1) 06/19/21 00:12 Plt Count 383 10^3/cmm (130-400) 06/19/21 00:12 MPV 9.5 fL (7.4-10.4) 06/19/21 00:12 Neut % (Auto) 67.5 % 06/19/21 00:12 Lymph % (Auto) 21.2 % 06/19/21 00:12 [place] % (Auto) 10.3 % 06/19/21 00:12 Eos % (Auto) 0.1 % 06/19/21 00:12 Baso % (Auto) 0.5 % 06/19/21 00:12 Neut # (Auto) 7.15 10^3/uL (1.8-7.7) 06/19/21 00:12 Lymph # (Auto) 2.3 10^3/uL (0.8-4.8) 06/19/21 00:12 [place] # (Auto) 1.1 10^3/uL (0.2-0.9) H 06/19/21 00:12 Eos # (Auto) 0.0 10^3/uL (0.0-0.8) 06/19/21 00:12 Baso # (Auto) 0.1 10^3/uL (0.0-0.1) 06/19/21 00:12 Nucleated RBC % (auto) 0 % 06/19/21 00:12 Nucleated RBCs # 0.0 /100WBC 06/19/21 00:12 Sodium 139 mmol/L (136-145) 06/19/21 00:12 Potassium 3.9 mmol/L (3.5-5.1) 06/19/21 00:12 Chloride 104 mmol/L (98-107) 06/19/21 00:12 Carbon Dioxide 18 mmol/L (22-29) L 06/19/21 00:12 Anion Gap 20.9 (5-19) H 06/19/21 00:12 BUN 9 mg/dL (6-20) 06/19/21 00:12 Creatinine 0.7 mg/dL (0.7-1.2) 06/19/21 00:12 GFR Calculation 136.3 mL/min (90-130) H 06/19/21 00:12 Glucose 129 mg/dL (65-115) H 06/19/21 00:12 Calculated Osmolality 288 mOsm/kg (285-295) 06/19/21 00:12 Calcium 9.2 mg/dL (8.5-10.5) 06/19/21 00:12 Total Bilirubin 0.6 mg/dL (0.15-1.2) 06/19/21 00:12 AST 64 U/L (0-40) H 06/19/21 00:12 ALT 76 U/L (0-41) H 06/19/21 00:12 Alkaline Phosphatase 108 IU/L (40-130) 06/19/21 00:12 Total Protein 7.7 g/dL (6.6-8.7) 06/19/21 00:12 Albumin 4.9 g/dL (3.5-5.2) 06/19/21 00:12 Globulin 2.8 g/dL (1.3-4.6) 06/19/21 00:12 TSH 1.96 uIU/mL (0.27-4.20) 06/19/21 00:12 Salicylates < 0.3 mg/dL (3-10) L 06/19/21 00:12 Urine Opiates Screen Negative ng/mL (Negative) 06/19/21 02:06 Acetaminophen < 5.0 ug/mL (10-30) L 06/19/21 00:12 Ur Barbiturates Screen Negative ng/mL (Negative) 06/19/21 02:06 Ur Phencyclidine Scrn Negative ng/mL (Negative) 06/19/21 02:06 Ur Amphetamines Screen Positive ng/mL (Negative) H 06/19/21 02:06 U Benzodiazepines Scrn Negative ng/mL (Negative) 06/19/21 02:06 Urine Cocaine Screen Negative ng/mL (Negative) 06/19/21 02:06 U Marijuana (THC) Screen Positive ng/mL (Negative) H 06/19/21 02:06 Ethyl Alcohol 16 mg/dL (0-10) H 06/19/21 00:12 Discharge Plan Discharge Patient Disposition: Placed in Observation Admit Provider: Arben Camarena Clinical Impression: Drug induced hallucinations, Suicidal ideation Discharge Diet: Regular Discharge Activity: Resume usual activity Coding Level of Care Code ED Business Planning Director for [facility] Fwd Exam Comprehensive
[2021-06-19 00:17] LABS: Basophils # 0.1 10^3/uL (0.0-0.1); Basophils % 0.5 %; Eosinophils % 0.1 %; Hematocrit 48.5 % (42.0-52.0); Hemoglobin 16.5 g/dL (11.7-16.6); Lymphocytes # 2.3 10^3/uL (0.8-4.8); Lymphocytes % 21.2 %; Mean Corpuscular Hemoglobin 29.2 pg (28.0-34.0); Mean Corpuscular Volume 85.8 fl (80-94); Mean Platelet Volume 9.5 fL (7.4-10.4); Monocytes # 1.1 10^3/uL (0.2-0.9); Monocytes % 10.3 %; Neutrophils # 7.15 10^3/uL (1.8-7.7); Neutrophils % 67.5 %; Nucleated Red Blood Cells % 0 %; Platelet Count 383 10^3/cmm (130-400); Red Blood Count 5.65 10^6/uL (4.1-5.3); White Blood Count 10.6 10^3/uL (4.0-10.0)
[2021-06-19 00:44] LABS: Alanine Aminotransferase 76 U/L (0-41); Albumin Level 4.9 g/dL (3.5-5.2); Alcohol Level 16 mg/dL (0-10); Alkaline Phosphatase 108 IU/L (40-130); Blood Urea Nitrogen 9 mg/dL (6-20); Calcium 9.2 mg/dL (8.5-10.5); Carbon Dioxide 18 mmol/L (22-29); Chloride 104 mmol/L (98-107); Globulin 2.8 g/dL (1.3-4.6); Glomerular Filtration Rate 136.3 mL/min (90-130); Glucose 129 mg/dL (65-115); Osmolality Calculated 288 mOsm/kg (285-295); Sodium 139 mmol/L (136-145); Total Bilirubin 0.6 mg/dL (0.15-1.2); Total Protein 7.7 g/dL (6.6-8.7)
[2021-06-19 00:45] LABS: Acetaminophen < 5.0 ug/mL (10-30); Anion Gap 20.9 (5-19); Aspartate Amino Transferase 64 U/L (0-40); Potassium 3.9 mmol/L (3.5-5.1); Salicylate < 0.3 mg/dL (3-10)
[2021-06-19 00:48] LABS: Thyroid Stimulating Hormone 1.96 uIU/mL (0.27-4.20)
[2021-06-19] MEDS: lactated ringers 1,000 ML 999 ML IV (01:11)
[2021-06-19] MEDS: ondansetron 2 mg/ML SDV 2 mL 4 MG IVP (01:11)
[2021-06-19 02:31] LABS: Amphetamines Screen Urine Positive (Negative); Barbiturates Screen Urine Negative (Negative); Benzodiazepines Screen Urine Negative (Negative); Cocaine Screen Urine Negative (Negative); Opiate Screen Urine Negative (Negative); PCP Screen Urine Negative (Negative); THC Screen Urine Positive (Negative)
[2021-06-19] MEDS: LORazepam 1 mg Tablet PO (03:16)
[2021-06-19 03:38] VITALS: BP 156/109; PULSE 110; RESP 18; TEMP 36.4; O2SAT 98
[2021-06-19 06:00] VITALS: BP 161/105; PULSE 110; RESP 18; TEMP 36.8; O2SAT 98
[2021-06-19] MEDS: ondansetron 4 MG Tablet PO (07:06)
[2021-06-19] MEDS: LORazepam 2 mg Tablet PO ×3 (07:06→14:56)
[2021-06-19] MEDS: folic acid 1 mg Tablet PO (10:28)
[2021-06-19] MEDS: multivitamin therapeutic Tablet 1 TAB PO (10:28)
[2021-06-19] MEDS: thiamine 100 mg Tablet PO (10:28)
--- NOTE | 2021-06-19 10:51 | P.NPUHP_ITS ---
Providers/Chief Complaint Admitting Physician: Arben Camarena MD Primary Care Provider: Oh Manzo MD Chief Complaint: Detox HPI [facility] History of Present Illness Pj Dudley Jr is a 25 year old male admitted through our emergency department with the following report: Mr. Dudley is a 25-year-old gentleman with significant past medical history of depression and polysubstance abuse.? He endorses being sober for some period of time and had success with outpatient therapy programs however approximately 1 week ago used methamphetamine.? He had approximately 1 week where he did not sleep and was having auditory and visual hallucinations.? These caused him to be fearful for his life and at 1 point he asked one of his friends if he had a gun as the patient believed that he was going to be kidnapped and tortured and was considering ending his own life.? This has slowly improved though the patient used methamphetamine again today.? He does endorse alcohol use and attempt to stop the hallucinations.? Outside of the context of drug use he does deny history of psychiatric symptoms.? He otherwise denies medical complaints.? Intensity symptoms moderate to severe.? Course is improved.? No other specific changes in health, exacerbating, or alleviating factors identified.? He denies history of alcohol withdrawal seizures or DTs. He was admitted to the neuropsychiatry unit for the treatment of these issues. He graduated from [facility] [employer]:16 on March 11. He has been and doing well for approximately 8 months. He worked at various jobs that they had for him. He went to a transitional house. The people who he was living will have a construction company and he worked with him some. He also worked in a restaurant some. He said that he did fairly well. He then went to the store to buy some beer. Even on the way there he ask himself why he was doing such a stupid thing. He does not have an answer. He also has been using meth amphetamine which always causes hallucinations and paranoia as well as insomnia. He says he gets about 1 hour of energy which is definitely not worth it. He left the transitional house because he was using alcohol and drugs again. He has been homeless and unemployed for most of the last month. Yesterday he was having auditory and visual hallucinations and was paranoid someone was going to kill him. That cause suicidal ideation. He decided to come into the hospital because he was not safe. He wants to go back to [place] [address] but they do not take people until the service on Friday. He would like to stay here until then because he is sure he will drink if he leaves before then. He has been using methamphetamine on and off since he was 17. He has been drinking alcohol since he could buy it at age 20. He did not have a very good childhood. His parents split up when he was in the sixth grade. He had four siblings. They were split up and lived with different family members and bounce from family member to family member. He does not know why his mother did not take care of him. He did not feel love. He felt like the black sheep. He did not feel like he was part of the family. He described his teenage years as fairly normal. He played sports. He says that he is not good at relationships. Many of the girls that he chooses are not emotionally healthy. He says that he chases love. If he has an emotionally healthy female he messes up the relationship. His self-esteem is not good. He has never had behavioral health treatment. When he was living at [facility] 3:[facility], away from alcohol and drugs he did not feel he had any anxiety or depression. He has never had hallucinations apart from using the drugs. Meds NPU Home Medications Medication Instructions Recorded Confirmed Last Taken Type calcium carbonate 300 mg (750 mg) 300 mg PO QID PRN 12/15/19 06/19/21 12/15/19 History chewable tablet (Tums) thiamine mononitrate (vit B1) 100 100 mg PO DAILY 30 Days #30 tab 05/13/20 06/19/21 Unknown Rx mg tablet (Vitamin B-1 (mononitrate)) Allergies Allergy/AdvReac Type Severity Reaction Status Date / Time No Known Allergies Allergy Unverified 12/15/19 19:51 PFS N[facility] PFS: Medical History (Reviewed 05/11/20 @ 23:19 by Harry De La Torre MD, [facility] No pertinent past medical history Mental Status Exam MSE Comments: This is an overweight 25-year-old male who appears approximately his stated age. He is cooperative with the evaluation. He is in no acute distress. His mood is fairly good. He is dressed in hospital scrubs. psychomotor activity is mildly decreased. Speech is at a regular rate and rhythm, normal volume, good articulation, not pressured. Alert, oriented X3 Attention and concentration appear to be normal. Memory is intact Mood is depressed. Affect is mildly dysphoric. Thought process is logical and goal-directed. Thought content: Denies auditory and visual hallucinations. No delusions or paranoia are noted. No current suicidal ideation, and no homicidal ideation. Fund of knowledge is about average Insight and judgment appear to be fair. Impulse control is poor. Vitals/I&O/Wt Last Vital Signs Temp 98.2 F 06/19/21 06:00 Pulse 110 H 06/19/21 06:00 Resp 18 06/19/21 06:00 BP 161/105 06/19/21 06:00 Pulse Ox 98 06/19/21 06:00 06/18/21 06/19/21 06/19/21 22:59 06:59 14:59 Intake Total 1000 / 1000 Balance 1000 / 1000 Weight last 48 hrs Weight 83.915 kg Data NPU : 06/19/21 00:12 06/19/21 00:12 A&P Assessment and plan (1) Drug induced hallucinations: Status: Acute (2) Suicidal ideation: Status: Acute (3) Depression: Status: Acute (4) Alcohol withdrawal syndrome without complication: Status: Acute (5) Alcohol use: Status: Acute (6) Methamphetamine abuse: Status: Acute Plan This is a 25-year-old male who has had difficulty with methamphetamine and alcohol since he turned 17. He is admitted because of intoxication, psychosis and suicidal ideation. Plan: 1. We will observe just on as needed medications. CIWA protocol 2. Continue every 15 minute checks for safety. 3. Encourage individual, group and milieu therapies. 4. Encourage sober living treatment after discharge at the highest level of care to which he is willing to commit. 5. We will monitor for safety for himself in the community prior to discharge. Involuntary Hold Information 96 Hour Hold: 96 Hour Involuntary Admission: No 96 Hour Hold Ending Date: 05/17/20 96 Hour Hold Ending Time: 18:15 Attestations NPU Medical Necessity Statement*: Inpatient hospitalization is medically necessary and the clinically appropriate intervention at this time. We will initiate medications and make changes as indicated. He will be in the hospital for over 2 midnights. Likely length of stay 4-6 days Coding Level of Care Code Acute Gas Station Supervisor for [facility] Fwd Diagnoses Drug induced hallucinations F19.951 Suicidal ideation R45.851 Depression F32.9 Alcohol withdrawal syndrome without complication F10.230 Alcohol use Z72.89 Methamphetamine abuse F15.10
--- NOTE | 2021-06-19 11:34 | NPU.GN ---
[facility] NeuroPsych Unit Group Topic: Roll The Tey General Mood of Group: Pj did not attend group today. He did meet with the [facility] and complete the paperwork for [facility] services. He mentioned that he has issues with addictions, and he has no PCP, Health insurance, and coping skills that he would like to work on along with his sobriety.
[2021-06-19] MEDS: OLANZapine 5 mg ODT PO (12:22)
[2021-06-19 14:00] VITALS: BP 138/79; PULSE 121; RESP 20; TEMP 36.8; O2SAT 95
[2021-06-19 21:10] VITALS: BP 131/78; PULSE 86; RESP 16; TEMP 36.6; O2SAT 98
[2021-06-20] MEDS: hyDROXYzine 25 mg Capsule 50 MG PO (06:01)
[2021-06-20] MEDS: acetaminophen 325 mg Tablet 650 MG PO ×2 (09:52→18:27)
[2021-06-20] MEDS: multivitamin therapeutic Tablet 1 TAB PO (09:52)
[2021-06-20] MEDS: folic acid 1 mg Tablet PO (09:52)
[2021-06-20] MEDS: calcium carbonate 500 mg Chew Tablet 1000 MG PO (09:53)
[2021-06-20] MEDS: thiamine 100 mg Tablet PO (09:53)
[2021-06-20] MEDS: OLANZapine 5 mg ODT PO ×2 (10:00→18:26)
[2021-06-20] MEDS: nicotine 2 mg Gum BUCCAL (10:59)
--- NOTE | 2021-06-20 11:40 | NPU.GN ---
[facility] NeuroPsych Unit Group Topic:Coping Mechanisms Activity General Mood of Group: Pj did not attend group today.
--- NOTE | 2021-06-20 11:50 | P.NPUPN_ITS ---
Subjective NPU Subjective: He says that he is doing much better. He is no longer hearing voices. His mood is better. Unfortunately we found out that [facility] will not take him back. We tried to talk him into a different treatment program but he refuses. He says he is going to go live with someone [place] the country far away from the store where he cannot buy alcohol. He says this person that he is going to live with does not drink or do drugs and he will not be tempted. He did not remember much of our conversation yesterday. He was reeducated on treatment of anxiety. He has not had difficulty with Lexapro and asked if it could be increased. Mental Status Exam MSE Comments: This is an overweight 25-year-old male who appears approximately his stated age. He is cooperative with the evaluation. He is in no acute distress. His mood is fairly good. He is dressed in hospital scrubs. psychomotor activity is mildly decreased. Speech is at a regular rate and rhythm, normal volume, good articulation, not pressured. Alert, oriented X3 Attention and concentration appear to be normal. Memory is intact Mood is mildly depressed. Affect is mildly dysphoric. Thought process is logical and goal-directed. Thought content: Denies auditory and visual hallucinations. No delusions or paranoia are noted. No current suicidal ideation, and no homicidal ideation. Fund of knowledge is about average Insight and judgment appear to be fair. Impulse control is poor. Cognition: Patient Appearance: Appropriate Level of Consciousness: Awake, Alert, Appropriate and Follows Commands Patient Cognition Impaired: No Ability to Follow Directions: Good Patient Orientation (long list): Person, Place, Name, Birthday, Month and Year Comprehension Ability: No Impairment Hallucination Type: None Delusion Description: Paranoid Ideation Thought Process: Appropriate Affect: Affect Description: Anxious, Depressed and Guarded Behavior: Patient Behavior: Appropriate and Cooperative Speech Pattern: Appropriate and Clear Vitals/I&O/Wt Last Vital Signs Temp 97.8 F 06/19/21 21:10 Pulse 86 06/19/21 21:10 Resp 16 06/19/21 21:10 BP 131/78 06/19/21 21:10 Pulse Ox 98 06/19/21 21:10 Weight last 48 hrs Weight 83.915 kg Data NPU : 06/19/21 00:12 03/15/22 00:12 A&P Assessment and plan (1) Drug induced hallucinations: Status: Acute (2) Suicidal ideation: Status: Acute (3) Depression: Status: Acute (4) Alcohol withdrawal syndrome without complication: Status: Acute (5) Alcohol use: Status: Acute (6) Methamphetamine abuse: Status: Acute (7) Anxiety: Status: Acute Plan This is a 25-year-old male who has had difficulty with methamphetamine and alcohol since he turned 17. He is admitted because of intoxication, psychosis and suicidal ideation. Plan: 1. Start on Lexapro 10 mg daily.. CIWA protocol 2. Continue every 15 minute checks for safety. 3. Encourage individual, group and milieu therapies. 4. Encourage sober living treatment after discharge at the highest level of care to which he is willing to commit. 5. We will monitor for safety for himself in the community prior to discharge. Involuntary Hold Information 96 Hour Hold: 96 Hour Involuntary Admission: No 96 Hour Hold Ending Date: 05/17/20 96 Hour Hold Ending Time: 18:15 Attestations NPU Medical Necessity Statement*: Inpatient hospitalization is medically necessary and the clinically appropriate intervention at this time. We will initiate medications and make changes as indicated. Coding Level of Care Code Acute [employer] for Lesvia Herrera Diagnoses Drug induced hallucinations F19.951 Suicidal ideation R45.851 Depression F32.9 Alcohol withdrawal syndrome without complication F10.230 Alcohol use Z72.89 Methamphetamine abuse F15.10 Anxiety F41.9
[2021-06-20] MEDS: escitalopram 10 mg Tablet PO (12:10)
[2021-06-20 14:00] VITALS: BP 128/85; PULSE 108; RESP 17; TEMP 36.9; O2SAT 97
[2021-06-20] MEDS: quetiapine 100 mg Tablet PO (20:53)
[2021-06-20 21:04] VITALS: BP 152/79; PULSE 99; RESP 20; TEMP 36.8; O2SAT 96
[2021-06-21 06:00] VITALS: BP 141/85; PULSE 77; RESP 19; TEMP 36.6; O2SAT 95
[2021-06-21] MEDS: multivitamin therapeutic Tablet 1 TAB PO (10:01)
[2021-06-21] MEDS: thiamine 100 mg Tablet PO (10:01)
[2021-06-21] MEDS: hyDROXYzine 25 mg Capsule 50 MG PO (10:01)
[2021-06-21] MEDS: folic acid 1 mg Tablet PO (10:01)
[2021-06-21] MEDS: escitalopram 10 mg Tablet PO (10:01)
--- NOTE | 2021-06-21 10:39 | W.PM.NPUDCS ---
Diagnoses at Discharge Discharge Diagnosis (1) Drug induced hallucinations: Status: Acute (2) Suicidal ideation: Status: Acute (3) Depression: Status: Acute (4) Alcohol withdrawal syndrome without complication: Status: Acute (5) Alcohol use: Status: Acute (6) Methamphetamine abuse: Status: Acute (7) Anxiety: Status: Acute Reason for Visit Reason for Visit: Detox Brief History: Mr. Dudley is a 25-year-old gentleman with significant past medical history of depression and polysubstance abuse.? He endorses being sober for some period of time and had success with outpatient therapy programs however approximately 1 week ago used methamphetamine.? He had approximately 1 week where he did not sleep and was having auditory and visual hallucinations.? These caused him to be fearful for his life and at 1 point he asked one of his friends if he had a gun as the patient believed that he was going to be kidnapped and tortured and was considering ending his own life.? This has slowly improved though the patient used methamphetamine again today.? He does endorse alcohol use and attempt to stop the hallucinations.? Outside of the context of drug use he does deny history of psychiatric symptoms.? He otherwise denies medical complaints.? Intensity symptoms moderate to severe.? Course is improved.? No other specific changes in health, exacerbating, or alleviating factors identified.? He denies history of alcohol withdrawal seizures or DTs. He was admitted to the neuropsychiatry unit for the treatment of these issues.? He graduated from [facility] on March 11.? He has been and doing well for approximately 8 months.? He worked at various jobs that they had for him.? He went to a transitional house.? The people who he was living will have a construction company and he worked with him some.? He also worked in a restaurant some.? He said that he did fairly well.? He then went to the store to buy some beer.? Even on the way there he ask himself why he was doing such a stupid thing.? He does not have an answer.? He also has been using methamphetamine which always causes hallucinations and paranoia as well as insomnia.? He says he gets about 1 hour of energy which is definitely not worth it.? He left the transitional house because he was using alcohol and drugs again.? He has been homeless and unemployed for most of the last month.??Yesterday he was having auditory and visual hallucinations and was paranoid someone was going to kill him. That cause suicidal ideation. He decided to come into the hospital because he was not safe. He wants to go back to [place] [id number] but they do not take people until the service on Friday. He would like to stay here until then because he is sure he will drink if he leaves before then. He has been using methamphetamine on and off since he was 17. He has been drinking alcohol since he could buy it at age 20. He did not have a very good childhood. His parents split up when he was in the sixth grade. He had four siblings. They were split up and lived with different family members and bounce from family member to family member. He does not know why his mother did not take care of him. He did not feel love. He felt like the black sheep. He did not feel like he was part of the family. He described his teenage years as fairly normal. He played sports. He says that he is not good at relationships. Many of the girls that he chooses are not emotionally healthy. He says that he chases love. If he has an emotionally healthy female he messes up the relationship. His self-esteem is not good.? He has never had behavioral health treatment.? When he was living at [facility], away from alcohol and drugs he did not feel he had any anxiety or depression.? He has never had hallucinations apart from using the drugs. Hospital Course Hospital Course He slowly acclimated to the individual, group and milieu therapies provided. He was started on Lexapro 10 mg in the morning and Seroquel 100 mg at bedtime for sleep. He tolerated these doses and showed steady improvement during his stay. He was able to contract for safety outside hospital prior to discharge. During the hospitalization, patient had routine laboratory studies which were within normal limits except for few outliers. Additionally there was a general medical evaluation which was also within normal limits and revealed no new acute processes. Discharge Summary: At the time of discharge, lethality was denied and psychosis was resolving. Mood and anxiety were well managed. Patient endorsed a plan to follow-up with the aftercare recommendations of the treatment team. Patient was evaluated and deemed to be absent credible lethality, and had achieved the maximum benefit from an inpatient hospitalization, so was discharged. Involuntary Hold Information 96 Hour Hold: 96 Hour Involuntary Admission: No 96 Hour Hold Ending Date: 05/17/20 96 Hour Hold Ending Time: 18:15 Mental Status Exam MSE Comments: This is an overweight 25-year-old male who appears approximately his stated age. He is cooperative with the evaluation. He is in no acute distress. His grooming is fairly good. He is dressed in hospital scrubs. psychomotor activity is mildly decreased. Speech is at a regular rate and rhythm, normal volume, good articulation, not pressured. Alert, oriented X3 Attention and concentration appear to be normal. Memory is intact Mood is mildly depressed. Affect is mildly dysphoric. Thought process is logical and goal-directed. Thought content: Denies auditory and visual hallucinations. No delusions or paranoia are noted. No current suicidal ideation, and no homicidal ideation. Fund of knowledge is about average Insight and judgment appear to be fair. Impulse control is poor. Cognition: Patient Appearance: Appropriate Level of Consciousness: Awake, Alert, Appropriate and Follows Commands Patient Cognition Impaired: No Ability to Follow Directions: Good Patient Orientation (long list): Person, Place, Name, Age, Birthday, Month and Year Comprehension Ability: No Impairment Hallucination Type: None Delusion Description: Paranoid Ideation Thought Process: Appropriate Affect: Affect Description: Appropriate Behavior: Patient Behavior: Appropriate and Cooperative Speech Pattern: Appropriate and Clear Discharge Data Studies Completed and Pending: Laboratory Results WBC 10.6 10^3/uL (4.0 -10.0) H 06/19/21 00:12 RBC 5.65 10^6/uL (4.1 -5.3) H 06/19/21 00:12 Hgb 16.5 g/dL (11.7-1 6.6) 06/19/21 00:12 Hct 48.5 % (42.0-52.0 ) 06/19/21 00:12 MCV 85.8 fl (80-94) 06/19/21 00:12 MCH 29.2 pg (28.0-34. 0) 06/19/21 00:12 MCHC 34.0 g/dL (30.0-3 6.0) 06/19/21 00:12 RDW 14.0 % (12.1-15.1 ) 06/19/21 00:12 Plt Count 383 10^3/cmm (130 -400) 06/19/21 00:12 MPV 9.5 fL (7.4-10.4) 06/19/21 00:12 Neut % (Auto) 67.5 % 06/19/21 00:12 Lymph % (Auto) 21.2 % 06/19/21 00:12 [place] % (Auto) 10.3 % 06/19/21 00:12 Eos % (Auto) 0.1 % 06/19/21 00:12 Baso % (Auto) 0.5 % 06/19/21 00:12 Neut # (Auto) 7.15 10^3/uL (1.8 -7.7) 06/19/21 00:12 Lymph # (Auto) 2.3 10^3/uL (0.8- 4.8) 06/19/21 00:12 [place] # (Auto) 1.1 10^3/uL (0.2- 0.9) H 06/19/21 00:12 Eos # (Auto) 0.0 10^3/uL (0.0- 0.8) 06/19/21 00:12 Baso # (Auto) 0.1 10^3/uL (0.0- 0.1) 06/19/21 00:12 Nucleated RBC % (a uto) 0 % 06/19/21 00:12 Nucleated RBCs # 0.0 /100WBC 06/19/21 00:12 Sodium 139 mmol/L (136-1 45) 06/19/21 00:12 Potassium 3.9 mmol/L (3.5-5 .1) 06/19/21 00:12 Chloride 104 mmol/L (98-10 7) 06/19/21 00:12 Carbon Dioxide 18 mmol/L (22-29) L 06/19/21 00:12 Anion Gap 20.9 (5-19) H 06/19/21 00:12 BUN 9 mg/dL (6-20) 06/19/21 00:12 Creatinine 0.7 mg/dL (0.7-1. 2) 06/19/21 00:12 GFR Calculation 136.3 mL/min (90- 130) H 06/19/21 00:12 Glucose 129 mg/dL (65-115 ) H 06/19/21 00:12 Calculated Osmolal ity 288 mOsm/kg (285- 295) 03/15/22 00:12 Calcium 9.2 mg/dL (8.5-10 .5) 06/19/21 00:12 Total Bilirubin 0.6 mg/dL (0.15-1 .2) 06/19/21 00:12 AST 64 U/L (0-40) H 06/19/21 00:12 ALT 76 U/L (0-41) H 06/19/21 00:12 Alkaline Phosphata se 108 IU/L (40-130) 06/19/21 00:12 Total Protein 7.7 g/dL (6.6-8.7 ) 06/19/21 00:12 Albumin 4.9 g/dL (3.5-5.2 ) 06/19/21 00:12 Globulin 2.8 g/dL (1.3-4.6 ) 06/19/21 00:12 TSH 1.96 uIU/mL (0.27 -4.20) 06/19/21 00:12 Salicylates < 0.3 mg/dL (3-10 ) L 06/19/21 00:12 Urine Opiates Scre en Negative ng/mL (N egative) 06/19/21 02:06 Acetaminophen < 5.0 ug/mL (10-3 0) L 06/19/21 00:12 Ur Barbiturates Sc reen Negative ng/mL (N egative) 06/19/21 02:06 Ur Phencyclidine S crn Negative ng/mL (N egative) 06/19/21 02:06 Ur Amphetamines Sc reen Positive ng/mL (N egative) H 06/19/21 02:06 U Benzodiazepines Scrn Negative ng/mL (N egative) 06/19/21 02:06 Urine Cocaine Scre en Negative ng/mL (N egative) 06/19/21 02:06 U Marijuana (THC) Screen Positive ng/mL (N egative) H 06/19/21 02:06 Ethyl Alcohol 16 mg/dL (0-10) H 06/19/21 00:12 Vitals: Last Vital Signs Temp 98 F 06/21/21 06:00 Pulse 77 06/21/21 06:00 Resp 19 H 06/21/21 06:00 BP 141/85 06/21/21 06:00 Pulse Ox 95 06/21/21 06:00 Discharge Plan Discharge Patient Disposition: Home Condition: Stable Prescriptions: New escitalopram oxalate 20 mg tablet 20 mg PO DAILY 30 Days Qty: 30 1RF quetiapine 100 mg Tablet 100 mg PO BEDTIME 30 Days Qty: 30 1RF Continued calcium carbonate [Tums] 300 mg (750 mg) Tablet,Chewable 300 mg PO QID PRN (Reason: ACID STOMACH) 0RF thiamine mononitrate (vit B1) [Vitamin B-1 (mononitrate)] 100 mg Tablet 100 mg PO DAILY 30 Days Qty: 30 1RF Discharge Orders: Discharge Order (Routine); Ordered 06/21/21 Ordered By: Arben Camarena Referrals: [facility] [Other] Oh Manzo MD [Primary Care Provider] - Discharge Diet: Regular Discharge Activity: Resume usual activity Patient Instructions: Opioid Safety Discharge Attestations NPU Time Spent in Discharge Care*: greater than 30 min Specific Discharge Activities: Specific discharge activities: educating patient, discussing with family caseworker/social workers/dc planners, documenting/other paperwork and evaluating patient/reviewing data Coding Level of Care Code Acute Chg DC note Diagnoses Drug induced hallucinations F19.951 Suicidal ideation R45.851 Depression F32.9 Alcohol withdrawal syndrome without complication F10.230 Alcohol use Z72.89 Methamphetamine abuse F15.10 Anxiety F41.9
[2021-06-21 10:47] VITALS: BP 141/85; PULSE 77; RESP 19; TEMP 36.6; O2SAT 95
== END 2021-06-21 12:06 | disposition home or self-care (01) | DRG 897 ==
LOC: ER 06-19 03:23 → NP 06-19 03:37
PROVIDERS: Admitting Provider Psychiatry & Neurology Psychiatry; Emergency Provider Emergency Medicine; PCP Family Medicine; Visit Provider Psychiatry & Neurology Psychiatry
DX: F15.151 Other stimulant abuse with stimulant-induced psychotic disorder with hallucinations (principal); R45.851 Suicidal ideations; F32.A Depression, unspecified; F15.10 Other stimulant abuse, uncomplicated; Z87.891 Personal history of nicotine dependence; Z59.00 Homelessness unspecified; F10.229 Alcohol dependence with intoxication, unspecified; F10.239 Alcohol dependence with withdrawal, unspecified; Y90.9 Presence of alcohol in blood, level not specified; F41.9 Anxiety disorder, unspecified
CPT/HCPCS: 80053; 80306; 80307; 84443; 85025; 96361; 96374; 97165; 99285; J2405; Q0162